=== PATIENT | male | born 1940 | race Caucasian/White ===

== ENCOUNTER → 2020-11-20 09:31 | Outpatient (BNVA) | payer MEDICARE, SELFPAY | PROVIDERS: PCP Nurse Practitioner Family; Visit Provider Urology | DX: C61 Malignant neoplasm of prostate (principal); R39.9 Unspecified symptoms and signs involving the genitourinary system; N39.9 Disorder of urinary system, unspecified | CPT/HCPCS: 81003; 84153 ==

== ENCOUNTER 2024-07-13 12:13 | Outpatient (CLI) | payer MEDICARE, SELFPAY ==
[2024-07-13 13:28] LABS: Albumin Level 4.3 g/dL (3.5-5.2); Anion Gap 15.5 (5-19); Blood Urea Nitrogen 33 mg/dL (8-23); Calcium 9.3 mg/dL (8.5-10.5); Carbon Dioxide 27 mmol/L (22-29); Chloride 98 mmol/L (98-107); Glucose 114 mg/dL (65-115); Phosphorus 3.6 mg/dL (2.5-4.5); Potassium 4.5 mmol/L (3.5-5.1); Sodium 136 mmol/L (136-145)
[2024-07-13 13:30] LABS: Creatinine Urine, Random 88 mg/dL (39-259); Microalbum Creatinine Ratio Ur 34 mg/dL (0-20); Microalbumin Random Urine 3 ug/dL (0-20)
[2024-07-13 13:32] LABS: Calcium 10.1 mg/dL (8.5-10.5)
[2024-07-13 13:38] LABS: Parathyroid Hormone 50.4 pg/mL (15-65)
== END 2024-07-13 12:14 | disposition home or self-care (01) ==
PROVIDERS: PCP Nurse Practitioner Family; Visit Provider Internal Medicine
DX: N18.32 Chronic kidney disease, stage 3b (principal)
CPT/HCPCS: 36415; 80069; 82044; 82310; 83970